=== PATIENT | female | born 1950 | race Caucasian/White ===

== ENCOUNTER → 2018-12-02 15:21 | Outpatient (CLI) | payer MEDICARE, SELFPAY ==
--- NOTE | 2018-12-02 | DI.MG.S_ITS ---
BILATERAL DIGITAL SCREENING MAMMOGRAM 3D/2D WITH CAD: 12/02/2018 CLINICAL: Routine screening. Comparison is made to exams dated: 02/11/2017 mammogram, 01/17/2015 mammogram, and 10/31/2013 mammogram - [facility]. There are scattered fibroglandular elements in both breasts. Current study was also evaluated with a Computer Aided Detection (CAD) system. No significant masses, calcifications, or other findings are seen in either breast. There has been no significant interval change. IMPRESSION: NEGATIVE There is no mammographic evidence of malignancy. A 1 year screening mammogram is recommended. This exam was interpreted at Station ID: [id number]. NOTE: For mammograms, a report in lay terms will be sent to the patient. Approximately 15% of breast malignancies will not be visualized mammographically. In the management of a palpable breast mass, a negative mammogram must not discourage biopsy of a clinically suspicious lesion. Electronically Signed By: Lubna marroquin/joshua:12/03/2018 01:00:53 letter sent: Normal Exam ACR BI-RADS Category 1: Negative 3341F
== END ==
PROVIDERS: Family Provider Physician Assistant; PCP Physician Assistant; Visit Provider Physician Assistant
DX: Z12.31 Encounter for screening mammogram for malignant neoplasm of breast (principal)
CPT/HCPCS: 77063; 77067

== ENCOUNTER → 2019-04-11 11:42 | Outpatient (CLI) | payer MEDICARE, SELFPAY ==
--- NOTE | 2019-04-11 | DI.CT.S_ITS ---
PROCEDURE: CT KIDNEY URETER BLADDER (KUB) INDICATIONS: Dysuria TECHNIQUE: Noncontrast 5 mm thick sections acquired from the diaphragms to the symphysis. 5 mm thick coronal and sagittal reformats were then performed. For radiation dose reduction, the following was used: automated exposure control, adjustment of mA and/or kV according to patient size. COMPARISON: [facility], CT, KIDNEY/ URETER/BLADDER, 12/13/2009, 8:29. FINDINGS: Image quality: Excellent. Lung bases: Lung bases are clear. Heart size is normal. Urinary system: Both kidneys are normal in size. No kidney stones. No hydronephrosis or perinephric fat stranding. Both ureters appear non-dilated throughout their expected courses. Bladder wall thickness is normal; no calcified bladder stones. Other solid organs: Liver is normal in size. Gallbladder appears normal. Pancreas is normal in contours. Spleen is normal in size. No adrenal nodules. Peritoneum and bowel: Unenhanced bowel loops demonstrate normal wall thickness and caliber. No free fluid or air. Nodes and vessels: No retroperitoneal or mesenteric adenopathy by size criteria. Aorta and inferior vena cava are normal in caliber. Abdominal wall: No ventral hernias. Pelvis: No free pelvic fluid. No inguinal hernias or adenopathy. Bones: No suspicious bony lesions. No vertebral body compression fractures. IMPRESSION: No hydronephrosis or nephrolithiasis is found. No ureteral calculus is identified. A source of persistent dysuria is not seen. Dictated by: Dejan Rainey M.D. on 04/11/2019 at 17:00 Approved by: Dejan Rainey M.D. on 04/11/2019 at 17:01
== END ==
PROVIDERS: PCP Student in an Organized Health Care Education/Training Program; Visit Provider Student in an Organized Health Care Education/Training Program
DX: R30.0 Dysuria (principal)
CPT/HCPCS: 74176

== ENCOUNTER → 2019-04-22 19:35 | Outpatient (CLI) | payer MEDICARE, SELFPAY | PROVIDERS: PCP Student in an Organized Health Care Education/Training Program; Visit Provider Physician Assistant | DX: N39.0 Urinary tract infection, site not specified (principal); R31.9 Hematuria, unspecified | CPT/HCPCS: 87086 ==

== ENCOUNTER → 2019-06-17 09:23 | Outpatient (CLI) | payer MEDICARE, SELFPAY ==
[2019-06-17 09:54] LABS: Add Manual Diff / Slide Review NO; Basophils Absolute Auto 100 /uL (0-100); Basophils Percent Auto 1.3 % (0-2); Eosinophils Absolute Auto 100 /uL (0-450); Eosinophils Percent Auto 1.7 % (2-4); Hematocrit 39.1 % (36-46); Hemoglobin 13.4 g/dL (12.0-16.0); Lymphocytes Absolute Auto 1400 /uL (1100-4500); Lymphocytes Percent Auto 33.8 % (25-40); Mean Corpuscular HGB Conc 34.3 % (30-36); Mean Corpuscular Hemoglobin 33.2 PG (26-34); Mean Corpuscular Volume 96.7 fL (80-100); Monocytes Absolute Auto 300 /uL (0-900); Monocytes Percent Auto 7.8 % (3-14); Neutrophils Absolute Auto 2200 /uL (1500-7000); Neutrophils Percent Auto 55.4 % (50-75); Platelet Count 275 X10^3/uL (150-400); Red Blood Cell Count 4.04 X10^6/uL (4.0-5.2); Red Cell Distribution Width 13.2 % (11.6-14.8)
[2019-06-17 10:03] LABS: Appearance Urine UA SL CLOUDY; Bilirubin Urine UA NEGATIVE (NEGATIVE); Color Urine UA YELLOW; Glucose Urine UA NEGATIVE (Negative); Ketones Urine UA NEGATIVE (NEGATIVE); Leukocyte Esterase Urine UA 1+ (NEGATIVE); Nitrite Urine UA NEGATIVE (Negative); Occult Blood Urine UA 2+ (Negative); Protein Urine UA NEGATIVE (Negative); Urobilinogen Urine UA 0.2 E.U./dL (0.2)
[2019-06-17 10:20] LABS: RBC Urine 5-10/HPF (0-5/HPF); Renal Epithelial Cells Urine 0-1/HPF (0-1/HPF); Squamous Epithelial Cell Urine 10-30 /HPF (0-5/HPF); Transitional Epi Cells Urine 1-5/HPF (0-5/HPF); WBC Urine 1-5/HPF (0-5/HPF); pH Urine UA 7.5 (4.5-8.0)
[2019-06-17 10:21] LABS: Bacteria Urine Few (2-10); Culture Indicated Urine Cult Not Indicated
[2019-06-17 10:22] LABS: Alanine Aminotransferase 18 IU/L (9-52); Albumin 4.4 g/dL (3.5-5.0); Albumin Globulin Ratio 1.8 (1.0-2.8); Alkaline Phosphatase 61 U/L (38-126); Aspartate Aminotransferase 21 IU/L (14-36); BUN Creatinine Ratio 21.7 (6-22); Bilirubin Total 0.3 mg/dL (0.2-1.3); Blood Urea Nitrogen 13 mg/dL (7-17); Calcium 9.5 mg/dL (8.4-10.2); Carbon Dioxide 31 mmol/L (22-32); Chloride 98 mmol/L (98-107); Cholesterol 226 mg/dL (140-199); Estimated Glomerular Filt Rate > 60.0 mL/min (>60); Globulin 2.5 g/dL (1.7-4.1); Glucose 93 mg/dL (80-110); HDL Cholesterol 80 mg/dL (40-60); HEMOLYSIS < 15 (0-50); LDL Cholesterol Calculated 125 mg/dL (<100); Potassium 4.3 mmol/L (3.4-5.1); Sodium 135 mmol/L (137-145); Total Protein 6.9 g/dL (6.3-8.2); Triglycerides 106 mg/dL (35-150)
== END ==
PROVIDERS: PCP Student in an Organized Health Care Education/Training Program; Visit Provider Physician Assistant
DX: E78.2 Mixed hyperlipidemia (principal); R35.0 Frequency of micturition
CPT/HCPCS: 36415; 80053; 80061; 81001; 85025

== ENCOUNTER → 2020-04-25 11:59 | Outpatient (CLI) | payer MEDICARE, SELFPAY ==
--- NOTE | 2020-04-25 | DI.MG.S_ITS ---
BILATERAL DIGITAL SCREENING MAMMOGRAM 3D/2D WITH CAD: 04/25/2020 CLINICAL: Routine screening. Comparison is made to exams dated: 12/02/2018 mammogram, 08/20/2017 mammogram, 02/17/2017 mammogram, 02/11/2017 mammogram, and 01/17/2015 mammogram - [facility]. There are scattered fibroglandular elements in both breasts. Current study was also evaluated with a Computer Aided Detection (CAD) system. No significant masses, calcifications, or other findings are seen in either breast. There has been no significant interval change. IMPRESSION: NEGATIVE There is no mammographic evidence of malignancy. A 1 year screening mammogram is recommended. This exam was interpreted at Station ID: [id number]. NOTE: For mammograms, a report in lay terms will be sent to the patient. Approximately 15% of breast malignancies will not be visualized mammographically. In the management of a palpable breast mass, a negative mammogram must not discourage biopsy of a clinically suspicious lesion. Electronically Signed By: Lubna marroquin/joshua:04/25/2020 17:38:10 letter sent: Normal Exam ACR BI-RADS Category 1: Negative 3341F
== END ==
PROVIDERS: PCP Student in an Organized Health Care Education/Training Program; Referring Provider Student in an Organized Health Care Education/Training Program; Visit Provider Student in an Organized Health Care Education/Training Program
DX: Z12.31 Encounter for screening mammogram for malignant neoplasm of breast (principal)
CPT/HCPCS: 77063; 77067

== ENCOUNTER → 2020-06-15 13:20 | Outpatient (CLI) | payer MEDICARE, SELFPAY ==
--- NOTE | 2020-06-15 | DI.RAD.S_ITS ---
PROCEDURE: XR DEXA AXIAL SKELETON INDICATIONS: Other specified menopausal and perimenopausal diso COMPARISON: None. FINDINGS: This blank DEXA report has been sent in error by the PACS system. The correct and complete report will be forthcoming in 1-2 days. Thank you for your patience and understanding. Dictated by: Aura Matthews MD, PhD on 06/15/2020 at 15:13 Approved by: Aura Matthews MD, PhD on 06/15/2020 at 15:14
== END ==
PROVIDERS: PCP Student in an Organized Health Care Education/Training Program; Referring Provider Student in an Organized Health Care Education/Training Program; Visit Provider Student in an Organized Health Care Education/Training Program
DX: Z78.0 Asymptomatic menopausal state (principal); Z87.891 Personal history of nicotine dependence
CPT/HCPCS: 77080

== ENCOUNTER → 2020-11-02 17:32 | Outpatient (CLI) | payer MEDICARE, SELFPAY ==
[2020-11-02] MEDS: COVID-19 VACC #1, MRNA(MOD) 100 MCG/0.5 ML VIAL IM (17:42)
== END ==
PROVIDERS: PCP Student in an Organized Health Care Education/Training Program; Visit Provider Internal Medicine
DX: Z23 Encounter for immunization (principal)
CPT/HCPCS: 0011A; 91301

== ENCOUNTER → 2020-11-30 13:42 | Outpatient (CLI) | payer MEDICARE, SELFPAY ==
[2020-11-30] MEDS: COVID-19 VACC #2, MRNA(MOD) 100 MCG/0.5 ML VIAL IM (13:52)
== END ==
PROVIDERS: PCP Student in an Organized Health Care Education/Training Program; Visit Provider Internal Medicine
DX: Z23 Encounter for immunization (principal)
CPT/HCPCS: 0012A; 91301

== ENCOUNTER → 2021-04-26 10:16 | Outpatient (CLI) | payer MEDICARE, SELFPAY ==
--- NOTE | 2021-04-26 10:18 | DI.MG.S_ITS ---
BILATERAL DIGITAL SCREENING MAMMOGRAM 3D/2D WITH CAD: 04/26/2021 CLINICAL: Routine screening. Comparison is made to exams dated: 04/25/2020 mammogram, 12/02/2018 mammogram, and 02/11/2017 mammogram - [facility]. There are scattered fibroglandular elements in both breasts. Current study was also evaluated with a Computer Aided Detection (CAD) system. No significant masses, calcifications, or other findings are seen in either breast. There has been no significant interval change. IMPRESSION: NEGATIVE There is no mammographic evidence of malignancy. A 1 year screening mammogram is recommended. This exam was interpreted at Station ID: [id number]. NOTE: For mammograms, a report in lay terms will be sent to the patient. Approximately 15% of breast malignancies will not be visualized mammographically. In the management of a palpable breast mass, a negative mammogram must not discourage biopsy of a clinically suspicious lesion. Electronically Signed By: Steven Colon M.D. at/joshua:04/26/2021 11:53:31 letter sent: Normal Exam ACR BI-RADS Category 1: Negative 3341F
== END ==
PROVIDERS: PCP Student in an Organized Health Care Education/Training Program; Referring Provider Student in an Organized Health Care Education/Training Program; Visit Provider Student in an Organized Health Care Education/Training Program
DX: Z12.31 Encounter for screening mammogram for malignant neoplasm of breast (principal)
CPT/HCPCS: 77063; 77067

== ENCOUNTER 2022-03-29 18:39 | Emergency (ER) | payer MEDICARE, SELFPAY ==
[2022-03-29] VITALS (11 sets, daily range): BP systolic 187–232; BP diastolic 81–106; PULSE 62–89; RESP 17–22; TEMP 36; O2SAT 89–99; BMI 25.7
[2022-03-29 22:44] LABS: Alanine Aminotransferase 21 IU/L (<35); Albumin 4.8 g/dL (3.5-5.0); Albumin Globulin Ratio 1.8 (1.0-2.8); Alkaline Phosphatase 55 U/L (38-126); Aspartate Aminotransferase 31 IU/L (14-36); BUN Creatinine Ratio 18.2 (6-22); Bilirubin Total 0.4 mg/dL (0.2-1.3); Blood Urea Nitrogen 14 mg/dL (7-17); Calcium 9.1 mg/dL (8.4-10.2); Carbon Dioxide 28 mmol/L (22-32); Chloride 98 mmol/L (98-107); Creatine Kinase 94 U/L (30-135); Estimated Glomerular Filt Rate > 60 mL/min (>60); Globulin 2.7 g/dL (1.7-4.1); Glucose 94 mg/dL (80-110); HEMOLYSIS < 15 (0-50); Lipase 105 U/L (23-300); Sodium 134 mmol/L (137-145); Total Protein 7.5 g/dL (6.3-8.2)
[2022-03-29 22:45] LABS: Add Manual Diff / Slide Review NO; Basophils Absolute Auto 200 /uL (0-100); Basophils Percent Auto 3.4 % (0-2); Eosinophils Absolute Auto 100 /uL (0-450); Eosinophils Percent Auto 1.4 % (2-4); Hematocrit 38.5 % (36-46); Hemoglobin 13.4 g/dL (12.0-16.0); Lymphocytes Absolute Auto 1700 /uL (1100-4500); Lymphocytes Percent Auto 31.5 % (25-40); Mean Corpuscular HGB Conc 34.7 % (30-36); Mean Corpuscular Hemoglobin 33.3 PG (26-34); Mean Corpuscular Volume 95.9 fL (80-100); Monocytes Absolute Auto 300 /uL (0-900); Monocytes Percent Auto 5.1 % (3-14); Neutrophils Absolute Auto 3100 /uL (1500-7000); Neutrophils Percent Auto 58.6 % (50-75); Platelet Count 268 X10^3/uL (150-400); Red Blood Cell Count 4.01 X10^6/uL (4.0-5.2); Red Cell Distribution Width 13.3 % (11.6-14.8); White Blood Cell Count 5.3 X10^3/uL (4.5-11.0)
[2022-03-29 22:55] LABS: Troponin I < 0.012 ng/mL (0.01-0.034)
--- NOTE | 2022-03-29 23:45 | ED.GENADULT ---
HPI - General Adult General Chief complaint: Hypertension Stated complaint: Needs BP checked stated 190/117 Time Seen by Provider: 03/29/22 23:25 Source: patient Mode of arrival: Family Vehicle History of Present Illness HPI narrative: Patient is a pierce healthy 71-year-old female who presents with high blood pressure. She is at on Thursday she had preop check. She is supposed to have eyelid surgery in 3 days. She never previously had elevated blood pressure but on that day was 166/76. Today she decided to check her blood pressure it was elevated to 200. She has no chest pain no headache no blurry vision no shortness of breath she has no other symptoms. She was quite worried because her blood pressure is so high. Hieu does have light stress home but has been has Alzheimer's and he has many responsibilities. She actually went to a primary care provider who noted that she had a grade 2 murmur which she had never had before. She denies having any symptoms of this. Patient states that for a while she has had increasing shortness of breath while walking up hill. She does have a history of asthma she says this seems to be little bit worse. Related Data Home Medications Medication Instructions Recorded Confirmed citalopram [Celexa] PO 04/22/19 06/18/20 nortriptyline PO 04/22/19 06/18/20 Previous Rx's Medication Instructions Recorded nitrofurantoin 100 mg PO BID #14 caps 04/22/19 monohydrate/macrocrystals 100 mg capsule (Macrobid) Allergies Allergy/AdvReac Type Severity Reaction Status Date / Time codeine [CODEINE] Allergy Unknown Verified 06/18/20 15:27 Review of Systems Review of Systems Narrative: GENERAL: Denies chills, fatigue, malaise, fever, sweats, travel HEENT: Denies sinus pain, ear pain, sore throat, difficulty swallowing, neck pain RESPIRATORY: Denies dyspnea, cough, wheezing, hemoptysis, sputum. CARDIOVASCULAR: Denies chest pain, palpitations, orthopnea, edema GASTROINTESTINAL: Denies nausea, vomiting, abdominal pain, diarrhea, constipation, melena. : Denies dysuria, frequency, incontinence, hematuria, urinary retention, flank pain. MUSCULOSKELETAL: Denies weakness, joint pain, or bony pain SKIN: No rash, no erythema, no pruritus NEUROLOGIC: Denies weakness, dizziness, headache, numbness, change in speech, confusion PSYCHIATRIC: No concerning psychosocial issues. 12 point review of systems is negative except for those stated above and HPI Patient History Medical History (Updated 03/30/22 @ 00:26 by Rosa Darnell DO) No significant medical problems Social History Smoking Status: Former smoker Smoking Status: Former smoker alcohol intake frequency: 0-2 drinks per day Substance Use Type: does not use Exam Initial Vital Signs Initial Vital Signs: Vital Signs Temperature 96.8 F L 03/29/22 18:49 Pulse Rate 89 03/29/22 18:49 Respiratory Rate 22 03/29/22 18:49 Blood Pressure 216/106 H 03/29/22 18:49 Pulse Oximetry 99 03/29/22 18:49 Oxygen Delivery Method 03/29/22 18:49 GENERAL: [Well-appearing, well-nourished] and in [no acute] distress. HEENT: Head atraumatic,EOMI, pupils reactive, face symmetric, [moist] mucous membranes CARDIOVASCULAR: Regular rate and rhythm without murmurs, rubs or gallops. RESPIRATORY: Breath sounds equal bilaterally, no wheezes rales or rhonchi. ABDOMEN: Soft, nontender. Normoactive bowel sounds all 4 quadrants. No guarding or rebound. EXTREMITIES: Normal range of motion, no clubbing or edema. Neurovascularly intact NEUROLOGICAL: Alert and oriented x4.Normal gait and speech. SKIN: Warm, dry, no laceration, no petechiae, no rashes or lesions. Course Orders Ordered: ED Orders 03/29/22 21:58 EKG-12 Lead Stat 03/29/22 22:18 Complete Blood Count AUTO DIFF Stat Comprehensive Metabolic Panel Stat Lipase Stat Magnesium Stat Troponin & CK Cardiac Panel Stat Vital Signs Vital signs: Vital Signs - 8 hr 03/29/22 21:45 03/29/22 21:56 03/29/22 21:56 Pulse Rate 67 74 Respiratory Rate 20 Blood Pressure 232/98 H Pulse Oximetry 89 L 03/29/22 22:00 03/29/22 22:01 03/29/22 22:01 Pulse Rate 70 70 Respiratory Rate 22 17 Blood Pressure 198/93 H Pulse Oximetry 03/29/22 22:30 03/29/22 22:31 03/29/22 22:31 Pulse Rate 64 64 Respiratory Rate 21 20 Blood Pressure 192/94 H Pulse Oximetry 03/29/22 23:00 03/29/22 23:01 03/29/22 23:01 Pulse Rate 62 62 Respiratory Rate 18 22 Blood Pressure 199/81 H Pulse Oximetry 03/29/22 23:30 03/29/22 23:31 03/29/22 23:31 Pulse Rate 66 66 Respiratory Rate 21 18 Blood Pressure 187/84 H Pulse Oximetry 03/30/22 00:00 03/30/22 00:22 03/30/22 00:22 Pulse Rate 70 68 Respiratory Rate 22 22 Blood Pressure 168/79 H Pulse Oximetry 03/30/22 00:30 Pulse Rate 74 Respiratory Rate 24 Blood Pressure Pulse Oximetry 96 Medical Decision Making Lab Data Result diagrams: 03/29/22 22:18 03/29/22 22:18 Labs: Lab Results 03/29/22 03/29/22 Range/Units 22:18 22:18 WBC 5.3 (4.5-11.0) X10^3/uL RBC 4.01 (4.0-5.2) X10^6/uL Hgb 13.4 (12.0-16.0) g/dL Hct 38.5 (36-46) % MCV 95.9 (80-100) fL MCH 33.3 (26-34) PG MCHC 34.7 (30-36) % RDW 13.3 (11.6-14.8) % Plt Count 268 (150-400) X10^3/uL Neut % (Auto) 58.6 (50-75) % Lymph % (Auto) 31.5 (25-40) % [place] % (Auto) 5.1 (3-14) % Eos % (Auto) 1.4 L (2-4) % Baso % (Auto) 3.4 H (0-2) % Neut # (Auto) 3100 (6285-4811) /uL Lymph # (Auto) 1700 (0713-7092) /uL Independence # (Auto) 300 (0-900) /uL Eos # (Auto) 100 (0-450) /uL Baso # (Auto) 200 H (0-100) /uL Sodium 134 L (137-145) mmol/L Potassium 4.0 (3.4-5.1) mmol/L Chloride 98 (98-107) mmol/L Carbon Dioxide 28 (22-32) mmol/L BUN 14 (7-17) mg/dL Creatinine 0.77 (0.52-1.04) mg/dL Estimated GFR > 60 (>60) mL/min BUN/Creatinine Ratio 18.2 (6-22) Glucose 94 (80-110) mg/dL Calcium 9.1 (8.4-10.2) mg/dL Magnesium 2.0 (1.6-2.3) mg/dL Total Bilirubin 0.4 (0.2-1.3) mg/dL AST 31 (14-36) IU/L ALT 21 (<35) IU/L Alkaline Phosphatase 55 (38-126) U/L Total Creatine Kinase 94 (30-135) U/L CK-MB (CK-2) TNP CK-MB (CK-2) Rel Index TNP Troponin I < 0.012 (0.01-0.034) ng/mL Total Protein 7.5 (6.3-8.2) g/dL Albumin 4.8 (3.5-5.0) g/dL Globulin 2.7 (1.7-4.1) g/dL Albumin/Globulin Ratio 1.8 (1.0-2.8) Lipase 105 (23-300) U/L ECG Data Interpretation: Normal sinus rhythm rate 73 NH interval 188 QRS [address] changes no T-wave inversions up bundle branch block noted no priors to compare MDM Narrative Medical decision making narrative: Patient's blood pressure does come down somewhat she has no sign of end-organ damage she is completely asymptomatic. At this time I recommend she monitor blood pressure I also recommend outpatient echo and possible stress test. Patient's blood pressure varies here in the ED however it is still quite elevated. His she has a primary care provider in can easily follow up. We also discussed that if she starts being symptomatic at any point in time or from blood pressure is persistently elevated then she needs to return to ED. I discussed all findings with the patient and spouse, Education has been performed regarding treatment plan, diagnosis, warning signs and symptoms and all concerns have been addressed. Verbally agree with and understood all of the above. Discharge Plan Departure Patient Disposition: Home Clinical Impression: Hypertension Instructions: DI for High Blood Pressure Activity Restrictions/Additional Instructions: *You have been diagnosed with high blood pressure *What to do: Please monitor your blood pressure daily check it 1 or 2 times a day morning and night and recorded for your primary care provider. I also do recommended echocardiogram and a stress test which can be arranged with her primary care provider. *Continue to take medications as directed *Follow up with your primary care provider in 2-3 days or call [phone] *Return to ER if you should have blood pressure greater than 190/100, chest pain, shortness of breath, headache blurry vision, weakness numbness tingling or any new, worsening or concerning symptoms Prescriptions: No Action citalopram PO nortriptyline PO nitrofurantoin monohyd/m-cryst [Macrobid] 100 mg capsule 100 mg PO BID Qty: 14 0RF Rx Instructions: must administer with a meal/food Referrals: Kelsie Francois PA-C [Primary Care Provider] - Visit Report Forms: Patient Portal/API
[2022-03-30] VITALS: PULSE 70; RESP 22
[2022-03-30 00:22] VITALS: BP 168/79; PULSE 68; RESP 22
[2022-03-30 00:30] VITALS: PULSE 74; RESP 24; O2SAT 96
== END 2022-03-30 00:49 | disposition home or self-care (01) ==
PROVIDERS: Emergency Provider Emergency Medicine; PCP Student in an Organized Health Care Education/Training Program
DX: I10 Essential (primary) hypertension (principal); R06.02 Shortness of breath; R07.9 Chest pain, unspecified
CPT/HCPCS: 36415; 80053; 82550; 83690; 83735; 84484; 85025; 93005; 93010; 99281; 99284

== ENCOUNTER → 2022-04-25 13:03 | Outpatient (CLI) | payer MEDICARE, SELFPAY ==
[2022-04-25 13:33] LABS: Add Manual Diff / Slide Review NO; Basophils Absolute Auto 100 /uL (0-100); Basophils Percent Auto 1.8 % (0-2); Eosinophils Absolute Auto 100 /uL (0-450); Eosinophils Percent Auto 1.6 % (2-4); Hematocrit 37.4 % (36-46); Hemoglobin 12.9 g/dL (12.0-16.0); Lymphocytes Absolute Auto 1400 /uL (1100-4500); Lymphocytes Percent Auto 33.2 % (25-40); Mean Corpuscular HGB Conc 34.6 % (30-36); Mean Corpuscular Hemoglobin 32.8 PG (26-34); Mean Corpuscular Volume 94.9 fL (80-100); Monocytes Absolute Auto 400 /uL (0-900); Monocytes Percent Auto 9.3 % (3-14); Neutrophils Absolute Auto 2200 /uL (1500-7000); Neutrophils Percent Auto 54.1 % (50-75); Platelet Count 268 X10^3/uL (150-400); Red Blood Cell Count 3.94 X10^6/uL (4.0-5.2); Red Cell Distribution Width 12.9 % (11.6-14.8); White Blood Cell Count 4.1 X10^3/uL (4.5-11.0)
[2022-04-25 13:49] LABS: Alanine Aminotransferase 15 IU/L (<35); Albumin 4.6 g/dL (3.5-5.0); Albumin Globulin Ratio 1.8 (1.0-2.8); Alkaline Phosphatase 49 U/L (38-126); Aspartate Aminotransferase 23 IU/L (14-36); BUN Creatinine Ratio 23.2 (6-22); Bilirubin Total 0.4 mg/dL (0.2-1.3); Blood Urea Nitrogen 16 mg/dL (7-17); Calcium 9.1 mg/dL (8.4-10.2); Carbon Dioxide 27 mmol/L (22-32); Chloride 101 mmol/L (98-107); Cholesterol 221 mg/dL (140-199); Estimated Glomerular Filt Rate > 60 mL/min (>60); Globulin 2.5 g/dL (1.7-4.1); Glucose 94 mg/dL (80-110); HDL Cholesterol 73 mg/dL (40-60); HEMOLYSIS < 15 (0-50); LDL Cholesterol Calculated 130 mg/dL (<100); Potassium 4.6 mmol/L (3.4-5.1); Sodium 136 mmol/L (137-145); Total Protein 7.1 g/dL (6.3-8.2); Triglycerides 92 mg/dL (35-150)
[2022-04-25 15:03] LABS: Vitamin D 25 Hydroxy (D3) 87.8 ng/mL (30.0-100.0)
[2022-04-25 15:31] LABS: Hep C Virus Ab w/Reflex Quant NEGATIVE s/c (NEGATIVE)
== END ==
PROVIDERS: PCP Student in an Organized Health Care Education/Training Program; Referring Provider Physician Assistant; Visit Provider Physician Assistant
DX: R06.00 Dyspnea, unspecified (principal); E78.2 Mixed hyperlipidemia; E55.9 Vitamin D deficiency, unspecified; I44.7 Left bundle-branch block, unspecified; I10 Essential (primary) hypertension; Z11.59 Encounter for screening for other viral diseases
CPT/HCPCS: 36415; 80053; 80061; 82306; 85025; 86803

== ENCOUNTER → 2022-05-05 13:24 | Outpatient (CLI) | payer MEDICARE, SELFPAY ==
--- NOTE | 2022-05-05 | DI.MG.S_ITS ---
BILATERAL DIGITAL SCREENING MAMMOGRAM 3D/2D WITH CAD: 05/05/2022 CLINICAL: Routine screening. Comparison is made to exams dated: 04/26/2021 mammogram, 04/25/2020 mammogram, 12/02/2018 mammogram, 08/20/2017 mammogram, and 02/11/2017 mammogram - . There are scattered fibroglandular elements in both breasts. Current study was also evaluated with a Computer Aided Detection (CAD) system. There are benign calcifications in both breasts. No significant masses, calcifications, or other findings are seen in either breast. There has been no significant interval change. IMPRESSION: BENIGN There is no mammographic evidence of malignancy. A 1 year screening mammogram is recommended. Based on the Tyrer Cuzick model (a risk assessment model) the patient's lifetime risk is 3.7% and her 10 year risk is 2.3%. According to the ACR, ACS, and NCCN guidelines, an annual breast MRI exam along with mammogram is recommended if the patient's lifetime risk is 20% or greater. This exam was interpreted at Station ID: [id number]. NOTE: For mammograms, a report in lay terms will be sent to the patient. Approximately 15% of breast malignancies will not be visualized mammographically. In the management of a palpable breast mass, a negative mammogram must not discourage biopsy of a clinically suspicious lesion. Electronically Signed By: Hunter rivas/joshua:05/05/2022 14:13:16 letter sent: Normal Exam ACR BI-RADS Category 2: Benign Finding(s) 3342F
== END ==
PROVIDERS: PCP Student in an Organized Health Care Education/Training Program; Referring Provider Student in an Organized Health Care Education/Training Program; Visit Provider Student in an Organized Health Care Education/Training Program
DX: Z12.31 Encounter for screening mammogram for malignant neoplasm of breast (principal)
CPT/HCPCS: 77063; 77067

== ENCOUNTER → 2022-05-21 10:26 | Outpatient (CLI) | payer MEDICARE, SELFPAY ==
[2022-05-21 11:37] LABS: COVID19 -Nasal RAPID Negative (Negative)
--- NOTE | 2022-05-21 18:42 | DI.NM.S_ITS ---
DATE OF SERVICE: 05/21/2022 PROCEDURE: Stress perfusion study only. INDICATION: Dyspnea, underlying hypertension, left bundle branch block. RADIOPHARMACEUTICAL: 25.2 millicurie technetium-99m Myoview IV was injected at stress. Please note this is a stress perfusion study only. STRESS TEST: The patient underwent IV Lexiscan perfusion study under the supervision of an attending staff using standard intravenous Lexiscan protocol. She remained hemodynamically stable. Baseline blood pressure 130/88 and heart rate 63. Baseline rhythm sinus with left bundle branch block. During stress, there were no new convincing ischemic changes seen. Occasional PACs. No significant sustained arrhythmias. The patient had minimal dyspnea. No chest discomfort. RAW DATA: Breast shadow was seen. GATED STUDY: Stress LV ejection fraction 70 percent. No wall motion abnormalities. Stress end-diastolic volume 124 mL. Lung/heart ratio 0.19, which is within normal limits. MYOCARDIAL PERFUSION SCAN: Stress supine and stress prone images were compared to each other. Stress supine images revealed a small to moderate-sized moderately decreased perfusion of distal anterior wall extending into the distal anteroseptum, as well as some mild base to mid anterior septal wall defect. During stress prone images, there was significant improvement of distal anterior wall, anteroseptal defect. The patient has mildly decreased perfusion of base to mid anteroseptum. The anterior wall has significantly improved. CONCLUSION: I will call this study likely a normal myocardial perfusion study with evidence of perfusion defect during stress supine, likely due to breast tissue attenuation, as well as underlying left bundle branch block, which got significantly improved during stress prone images. During stress prone images, no convincing ischemia or infarction. Left ventricular ejection fraction 70 percent during stress without any obvious wall motion abnormalities. Hence, overall this is a low-risk myocardial perfusion scan. Correlate clinically. Carmel Kern - JOHN/diana/will doc#: [id number]/job#: [id number] dd: 05/21/2022 16:54:00 dt: 05/21/2022 18:12:00 DICTATING MD/COPIES TO: Carina Shabazz MD COPIES MNE: DANIAL;
== END ==
PROVIDERS: PCP Student in an Organized Health Care Education/Training Program; Referring Provider Student in an Organized Health Care Education/Training Program; Visit Provider Physician Assistant
DX: R06.00 Dyspnea, unspecified (principal); I44.7 Left bundle-branch block, unspecified; I10 Essential (primary) hypertension; Z20.822 Contact with and (suspected) exposure to COVID-19
CPT/HCPCS: 78451; 87635; 93017; A9502; J2785

== ENCOUNTER → 2022-07-09 15:56 | Outpatient (CLI) | payer MEDICARE, SELFPAY ==
--- NOTE | 2022-07-09 15:57 | DI.RAD.S_ITS ---
PROCEDURE: XR CHEST 2V INDICATIONS: Fever, SOB TECHNIQUE: 2 views of the chest were acquired. COMPARISON: None. FINDINGS: Surgical changes and devices: None. Lungs and pleura: Lungs are clear. No pleural effusions or pneumothorax. Mediastinum: Mediastinal contours are normal. Heart size is normal. Bones and chest wall: No suspicious bony abnormalities. Soft tissues appear unremarkable. IMPRESSION: No acute cardiopulmonary process demonstrated radiographically. Dictated by: Ney Russell M.D. on 07/09/2022 at 16:25 Approved by: Ney Russell M.D. on 07/09/2022 at 16:25
== END ==
PROVIDERS: PCP Student in an Organized Health Care Education/Training Program; Referring Provider Nurse Practitioner Family; Visit Provider Nurse Practitioner Family
DX: R06.02 Shortness of breath (principal); R50.9 Fever, unspecified
CPT/HCPCS: 71046

== ENCOUNTER 2022-09-23 23:50 | Emergency (ER) | payer MEDICARE, SELFPAY ==
--- NOTE | 2022-09-24 00:18 | PC.NURSE ---
She was here after googling her symptoms and it was advised by google to come to an ED she said,she has history of high blood pressure and has an appointment with her PCP this .after noting her b/p here being 170/88 she Igor feel much better now,I think I will go home and see my DR this week.
== END 2022-09-24 00:05 | disposition left against medical advice (07) ==
PROVIDERS: Emergency Provider Emergency Medicine; PCP Student in an Organized Health Care Education/Training Program
DX: R03.0 Elevated blood-pressure reading, without diagnosis of hypertension (principal)

== ENCOUNTER → 2023-05-05 13:22 | Outpatient (CLI) | payer MEDICARE, SELFPAY ==
--- NOTE | 2023-05-05 | DI.MG.S_ITS ---
BILATERAL DIGITAL SCREENING MAMMOGRAM 3D/2D WITH CAD: 05/05/2023 CLINICAL: Routine screening. Comparison is made to exams dated: 05/05/2022 mammogram, 04/26/2021 mammogram, 04/25/2020 mammogram, and 12/02/2018 mammogram - [facility]. There are scattered areas of fibroglandular density in both breasts (category b / 25%-50% glandular tissue). Current study was also evaluated with a Computer Aided Detection (CAD) system. There are benign calcifications in both breasts. No significant masses, calcifications, or other findings are seen in either breast. There has been no significant interval change. IMPRESSION: BENIGN There is no mammographic evidence of malignancy. A 1 year screening mammogram is recommended. Based on the Tyrer Cuzick model (a risk assessment model) the patient's lifetime risk is 3.5% and her 10 year risk is 2.4%. According to the ACR, ACS, and NCCN guidelines, an annual breast MRI exam along with mammogram is recommended if the patient's lifetime risk is 20% or greater. This exam was interpreted at Station ID: [id number]. NOTE: For mammograms, a report in lay terms will be sent to the patient. Approximately 15% of breast malignancies will not be visualized mammographically. In the management of a palpable breast mass, a negative mammogram must not discourage biopsy of a clinically suspicious lesion. Electronically Signed By: Hunter rivas/joshua:05/05/2023 17:13:54 letter sent: Normal Exam ACR BI-RADS Category 2: Benign Finding(s) 3342F
== END ==
PROVIDERS: PCP Student in an Organized Health Care Education/Training Program; Referring Provider Student in an Organized Health Care Education/Training Program; Visit Provider Student in an Organized Health Care Education/Training Program
DX: Z12.31 Encounter for screening mammogram for malignant neoplasm of breast (principal)
CPT/HCPCS: 77063; 77067

== ENCOUNTER 2023-05-14 13:15 | Day surgery (SDC) | payer MEDICARE, SELFPAY ==
--- NOTE | 2023-05-14 | PATH_ITS ---
[facility] Accession Number: [id number] No. of containers..01 Tissue . 01 Material submitted: . colon - CECAL POLYPS . 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 [facility] 05/22/2023 1033 Local . 01 Electronically signed: . Anil Hanks MD, PhD, Pathologist NPI- [id number] . 01 Gross description: . CECAL POLYPS: Received in formalin are multiple fragment(s) of ramsay, soft tissue measuring 0.1 x 0.1 x 0.1 cm to 0.6 x 0.6 x 0.1 cm submitted entirely in 1 cassette(s) /RODRIGO 05/19/2023 1859 Local . 01 Pathologist provided ICD-10: D12.0, K52.89 . 01 CPT . 731806 Specimen Comment: A courtesy copy of this report has been sent to [phone] Performed at: 01 [facility] [address] [place] [address] [facility] [place], [place], [place] [id number] MD Nagi Fraga MD Phone: [phone]
[2023-05-14 13:37] VITALS: BP 133/88; PULSE 83; RESP 16; TEMP 36.2; O2SAT 98; BMI 25.8
[2023-05-14] MEDS: LACTATED RINGERS 1,000 ML 84 ML IV (13:54)
--- NOTE | 2023-05-14 14:36 | P.HP_ITS ---
History of Present Illness History of Present Illness Date Patient Seen: 05/14/23 Time Patient Seen: 14:36 Chief complaint: Colonoscopy Narrative: Juhi is a 72-year-old woman who is here for colonoscopy. Her father had colon cancer in his 80s and survived. She wants to remain proactive about colon cancer screening as long as possible. [facility] Medical History (Updated 05/14/23 @ 14:37 by Dick Gonzalez MD) No significant medical problems Social History household members: spouse Smoking Status: Former smoker Meds Home Medications and Allergies Home Medications Medication Instructions Recorded Confirmed Type citalopram [Celexa] 25 mg PO QDRHS anx 04/22/19 05/14/23 History nitrofurantoin 100 mg PO BID #14 caps 04/22/19 07/09/22 Rx monohydrate/macrocrystals 100 mg capsule (Macrobid) sodium,potassium,mag sulfates 17.5 See Rx Instructions PO .COMPLEX 04/20/23 Rx gram-3.13 gram-1.6 gram oral soln #354 mL (Suprep Bowel Prep Kit) Lopressor 100 mg PO DAILY 05/14/23 05/14/23 History Allergies Allergy/AdvReac Type Severity Reaction Status Date / Time No Known Drug Allergies Allergy Verified 05/14/23 13:32 Exam Vital Signs (past 8 hours): - 05/14/23 13:37 Temperature 97.2 F L Pulse Rate 83 Respiratory Rate 16 Blood Pressure 133/88 Pulse Oximetry 98 Oxygen Delivery Method Room Air Oxygen Delivery Method Room Air Const General: healthy appearing Assessment & Plan Assessment and plan (1) Family history of colon cancer: Status: Acute Plan We reviewed the risks and benefits colonoscopy for colon cancer screening and family history of colon cancer and she would like to proceed.
[2023-05-14 15:24] VITALS: BP 138/81; PULSE 65; RESP 158; TEMP 35.7; O2SAT 99
--- NOTE | 2023-05-14 15:24 | PM.OP.COLON ---
Operative Date/Time/Diagnoses Date of procedure: 05/14/23 Time of procedure: 15:24 Pre-op diagnosis: Family history of colon cancer and personal history of colon polyps Post-op diagnosis: same Procedure & Clinicians Study performed: Colonoscopy Same procedure as scheduled: Yes Surgeon: Dick Gonzalez Procedure Notes Procedure in detail: Surgeon: Dick Gonzalez MD Anesthesia: Ananda Wright CRNA Procedure: The patient was brought to the endoscopy suite, placed in left lateral decubitus position. The patient was connected to monitoring devices. A time-out was performed. Sedation was administered. Once the patient was adequately sedated, a digital rectal exam was performed and was normal. The scope was then inserted and advanced to the cecum where the appendiceal orifice was identified and photographed. The scope was then slowly withdrawn over greater than 6 minutes. The mucosa was thoroughly inspected. 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 There were 2 polyps in the cecum, 1 was about 5 mm and 1 was about 8 mm and both were removed with a cold snare and sent together. The scope was retroflexed in the rectum. There were some internal hemorrhoids noted. The scope was straightened and removed. The patient was awakened and brought to recovery. Scope withdrawal time: 14 minutes Sedation time: 30 minutes EBL: 5 mL Findings: 2 polyps in the cecum, both less than 1 cm Post-procedure Disposition: PACU
[2023-05-14 15:29] VITALS: BP 152/79; PULSE 61; RESP 14; O2SAT 100
[2023-05-14 15:35] VITALS: BP 167/90; PULSE 57; RESP 16; O2SAT 100
[2023-05-14 15:37] VITALS: BP 167/90; PULSE 56; RESP 14; O2SAT 98
== END 2023-05-14 16:08 | disposition home or self-care (01) ==
PROVIDERS: Surgery; PCP Student in an Organized Health Care Education/Training Program; Referring Provider Surgery; Visit Provider Surgery
PROC: 0DJD8ZZ Inspection of Lower Intestinal Tract, Via Natural or Artificial Opening Endoscopic (ICD-10-PCS; CPT 45378; principal; 2023-05-14 14:15)
DX: Z12.11 Encounter for screening for malignant neoplasm of colon (principal); Z80.0 Family history of malignant neoplasm of digestive organs; Z86.010 Personal history of colon polyps; K63.89 Other specified diseases of intestine; K64.8 Other hemorrhoids; D12.0 Benign neoplasm of cecum
CPT/HCPCS: 45385; J2704

== ENCOUNTER → 2024-02-01 15:17 | Outpatient (CLI) | payer MEDICARE, SELFPAY ==
--- NOTE | 2024-02-01 15:23 | DI.RAD.S_ITS ---
PROCEDURE: XR CERVICAL SPINE 2V OR 3V INDICATIONS: NECK PAIN TECHNIQUE: 3 view(s) of the cervical spine were acquired. COMPARISON: None. FINDINGS: Bones: No fractures or dislocations to the T1 level. The lateral masses of C1 appear intact on the odontoid view. No suspicious bony lesions. Mild disc space narrowing in the lower cervical spine Soft tissues: No prevertebral soft tissue swelling. IMPRESSION: Mild degenerative disc disease lower cervical spine Approved by: Eleuterio Denis M.D. on 02/01/2024 at 19:22
--- NOTE | 2024-02-01 15:23 | DI.RAD.S_ITS ---
PROCEDURE: XR THORACIC SPINE 3V INDICATIONS: NECK PAIN TECHNIQUE: 3 views of the thoracic spine were acquired. COMPARISON: None. FINDINGS: Bones: No fractures or dislocations. No suspicious bony lesions. 12 pairs of ribs are noted, and appear intact where visualized. Disc space narrowing anterior osteophytes in the midthoracic spine Soft tissues: No paravertebral stripe thickening. IMPRESSION: Midthoracic degenerative disc disease. No fracture or malalignment Approved by: Eleuterio Denis M.D. on 02/01/2024 at 19:23
== END ==
PROVIDERS: PCP Student in an Organized Health Care Education/Training Program; Referring Provider Physician Assistant; Visit Provider Physician Assistant
DX: M50.30 Other cervical disc degeneration, unspecified cervical region (principal); M51.34 Other intervertebral disc degeneration, thoracic region
CPT/HCPCS: 72040; 72072

== ENCOUNTER → 2024-05-07 13:13 | Outpatient (CLI) | payer MEDICARE, SELFPAY ==
--- NOTE | 2024-05-07 13:14 | DI.MG.S_ITS ---
BILATERAL DIGITAL SCREENING MAMMOGRAM 3D/2D WITH CAD: 05/07/2024 CLINICAL: Routine screening. Comparison is made to exams dated: 05/05/2022 mammogram, 05/05/2023 mammogram, 04/26/2021 mammogram, 04/25/2020 mammogram, and 12/02/2018 mammogram - [facility]. There are scattered areas of fibroglandular density in both breasts (category b / 25%-50% glandular tissue). Current study was also evaluated with a Computer Aided Detection (CAD) system. There are benign diffuse calcifications in both breasts. No significant masses, calcifications, or other findings are seen in either breast. There has been no significant interval change. IMPRESSION: BENIGN There is no mammographic evidence of malignancy. A 1 year screening mammogram is recommended. Based on the Tyrer Cuzick model (a risk assessment model) the patient's lifetime risk is 3.3% and her 10 year risk is 2.4%. According to the ACR, ACS, and NCCN guidelines, an annual breast MRI exam along with mammogram is recommended if the patient's lifetime risk is 20% or greater. This exam was interpreted at Station ID: [id number]. NOTE: For mammograms, a report in lay terms will be sent to the patient. Approximately 15% of breast malignancies will not be visualized mammographically. In the management of a palpable breast mass, a negative mammogram must not discourage biopsy of a clinically suspicious lesion. Electronically Signed By: Hunter rivas/[email or web address]:05/09/2024 09:51:44 letter sent: Normal Exam ACR BI-RADS Category 2: Benign Finding(s) [id number]
== END ==
PROVIDERS: PCP Student in an Organized Health Care Education/Training Program; Referring Provider Student in an Organized Health Care Education/Training Program; Visit Provider Student in an Organized Health Care Education/Training Program
DX: Z12.31 Encounter for screening mammogram for malignant neoplasm of breast (principal); R92.323 Mammographic fibroglandular density, bilateral breasts
CPT/HCPCS: 77063; 77067

== ENCOUNTER 2024-12-06 14:47 | Emergency (ER) | payer MEDICARE, SELFPAY ==
[2024-12-06 15:13] VITALS: BP 171/79; PULSE 85; RESP 18; TEMP 36.2; O2SAT 98; BMI 25.0
--- NOTE | 2024-12-06 15:40 | DI.RAD.S_ITS ---
PROCEDURE: XR CHEST 2V INDICATIONS: chest pain TECHNIQUE: 2 views of the chest were acquired. COMPARISON: [facility], , XR CHEST 2V, 07/09/2022, 15:57. FINDINGS AND IMPRESSION: No airspace consolidation or pleural effusion. Normal heart size. Degenerative osseous changes. Dictated by: Kevin Cavanaugh M.D. on 12/06/2024 at 15:54 Approved by: Kevin Cavanaugh M.D. on 12/06/2024 at 15:54
[2024-12-06 16:02] LABS: Influenza A - CEPHEID Flu A NEGATIVE (NEGATIVE); Influenza B - CEPHEID Flu B NEGATIVE (NEGATIVE); Respiratory Syncytial Virus Negative (Negative)
[2024-12-06 16:03] LABS: COVID-19 CEPHEID 4-PLEX PCR Negative (Negative)
--- NOTE | 2024-12-06 17:27 | ED_ITS ---
HPI - Nausea/Vomiting/Diarrhea <Juan Park PA-C - Last Filed: 12/06/24 19:01> General Chief complaint: Nausea/Vomiting/Diarrhea Stated complaint: chronic diarrhea 10 days vomitting WALKER Time Seen by Provider: 12/06/24 15:39 Source: patient Mode of arrival: Ambulatory History of Present Illness HPI Narrative: 74-year-old female presents to the ED with 10 days of nausea, vomiting, diarrhea. patient states that she is also experiencing some right-sided thoracic back pain on inspiration. patient is currently not experiencing any fevers, chills, nausea, abdominal pain, lightheadedness, dizziness, syncope. Patient reports about 3-4 episodes of diarrhea a day. Patient is tolerating p.o. well. Related Data Home Medications Medication Instructions Recorded Confirmed citalopram [Celexa] 25 mg PO QDRHS anx 04/22/19 09/19/23 Lopressor 100 mg PO DAILY 05/14/23 09/19/23 Previous Rx's Medication Instructions Recorded nitrofurantoin 100 mg PO BID #14 caps 04/22/19 monohydrate/macrocrystals 100 mg capsule (Macrobid) methocarbamol 500 mg tablet 500 mg PO TID PRN muscle pain #21 09/19/23 tabs Allergies Allergy/AdvReac Type Severity Reaction Status Date / Time No Known Drug Allergies Allergy Verified 09/19/23 17:02 Review of Systems <Juan Park PA-C - Last Filed: 12/06/24 19:01> Constitutional Constitutional: Denies chills, Denies fatigue, Denies fever(s), Denies frequent falls, Denies lethargy and Denies weakness Eyes Eyes: Denies change in vision, Denies eye discharge, Denies irritation and D enies loss of vision ENT Ears, Nose, Mouth, and Throat: Denies change in voice, Denies dizziness, Denies neck pain, Denies sore throat and Denies throat swelling Cardiovascular Cardiovascular: Denies chest pain, Denies irregular heart rhythm, Denies lightheadedness, Denies palpitations, Denies dyspnea, Denies dyspnea on exertion and Denies orthopnea Respiratory Respiratory: Denies cough, Reports pain on inspiration, Denies dyspnea, Denies dyspnea on exertion and Denies wheezing Gastrointestinal Gastrointestinal: Denies abdominal pain, Denies change in bowel habits, Reports diarrhea, Reports nausea and Reports vomiting Musculoskeletal Musculoskeletal: Denies neck pain and Denies numbness Integumentary/Breasts Skin/Breast: Denies pruritus, Denies erythema, Denies rash and Denies wounds Neurologic Neurologic: Denies behavioral changes, Denies confusion, Denies dizziness, Denies frequent falls, Denies loss of vision, Denies numbness and Denies weakness Psychiatric Psychiatric: Denies anxiety, Denies behavioral changes, Denies confusion, Denies depression, Denies homicidal ideation and Denies suicidal ideation Endocrine Endocrine: Denies fatigue, Denies flushing and Denies palpitations Hematologic/Lymphatic Hematologic/Lymphatic: Denies easy bruising Allergic/Immunologic Allergic/Immunologic: Denies urticaria, Denies throat swelling and Denies wheezing Patient History <Juan Park PA-C - Last Filed: 12/06/24 19:01> Medical History No significant medical problems Social History household members: spouse Smoking Status: Former smoker Smoking Status: Former smoker alcohol intake frequency: 0-2 drinks per day Alcohol type: wine Exam <Juan Park PA-C - Last Filed: 12/06/24 19:01> Narrative Exam Narrative: Const General:?cooperative, healthy appearing and comfortable [facility] Head:?normal to inspection Ears:?hearing grossly normal bilaterally Nose:?external nose normal Face and sinus:?normal facial exam and sinuses nontender Mouth:?oral mucosae normal Throat:?posterior oropharynx normal Eyes General:?appearance normal, both eyes and all related structures Neck Neck:?normal visual inspection and no lymphadenopathy noted Resp Effort & Inspection:?normal respiratory effort Auscultation:?clear to auscultation bilaterally Cardio Rate:?regular rate Rhythm:?regular rhythm GI Abdomen is soft, nondistended, nontender to palpation. Neuro General:?patient alert, patient awake and patient oriented x3 Initial Vital Signs Initial Vital Signs: Vital Signs Temperature 97.2 F L 12/06/24 15:13 Pulse Rate 85 12/06/24 15:13 Respiratory Rate 18 12/06/24 15:13 Blood Pressure 171/79 H 12/06/24 15:13 Pulse Oximetry 98 12/06/24 15:13 Oxygen Delivery Method Room Air 12/06/24 15:13 <Jackie Marisa Frausto DO - Last Filed: 12/11/24 07:54> Initial Vital Signs Initial Vital Signs: Vital Signs Temperature 97.2 F L 12/06/24 15:13 Pulse Rate 85 12/06/24 15:13 Respiratory Rate 18 12/06/24 15:13 Blood Pressure 171/79 H 12/06/24 15:13 Pulse Oximetry 98 12/06/24 15:13 Oxygen Delivery Method Room Air 12/06/24 15:13 Course <Juan Park PA-C - Last Filed: 12/06/24 19:01> Orders Ordered: ED Orders 12/06/24 15:15 Covid-19 + FLU A/B + RSV - PCR Stat 12/06/24 15:40 CXR [XR chest 2V] Stat Vital Signs Vital signs: Vital Signs - 8 hr 12/06/24 15:13 12/06/24 17:45 Temperature 97.2 F L Pulse Rate 85 71 Respiratory Rate 18 17 Blood Pressure 171/79 H 156/73 H Pulse Oximetry 98 97 Oxygen Delivery Method Room Air Room Air <Jackie Frausto DO - Last Filed: 12/11/24 07:54> Orders Ordered: ED Orders 12/06/24 15:15 Covid-19 + FLU A/B + RSV - PCR Stat 12/06/24 15:40 CXR [XR chest 2V] Stat Vital Signs Vital signs: Vital Signs - 8 hr 12/06/24 15:13 12/06/24 17:45 Temperature 97.2 F L Pulse Rate 85 71 Respiratory Rate 18 17 Blood Pressure 171/79 H 156/73 H Pulse Oximetry 98 97 Oxygen Delivery Method Room Air Room Air MDM - Nausea/Vomiting/Diarrhea <Juan Park PA-C - Last Filed: 12/06/24 19:01> Lab Data Labs: Lab Results 12/06/24 Range/Units 15:15 SARS-CoV-2 (PCR) Negative (Negative) Influenza A (RT-PCR) Flu a negative (NEGATIVE) Influenza B (RT-PCR) Flu b negative (NEGATIVE) RSV (PCR) Negative (Negative) MDM Narrative Medical decision making narrative: 74-year-old female presents to the ED with 10 days of nausea, vomiting, diarrhea. Respiratory panel was obtained which was negative for COVID-19, influenza, RSV. Chest x-ray was obtained with no acute findings. It is also reassuring that patient's upper back pain was easily reproducible with twisting movements and arm movements. Patient was offered a D-dimer test to rule out PE, however patient declined. Recommend supportive treatment with plenty of hydration, Imodium, BRAT diet, tylenol. recommend follow-up with PCP as soon as possible. ED return precautions discussed with patient. Patient verbalized understanding. Medical records reviewed: Yes <Jackie Frausto DO - Last Filed: 12/11/24 07:54> Lab Data Labs: Lab Results 12/06/24 Range/Units 15:15 SARS-CoV-2 (PCR) Negative (Negative) Influenza A (RT-PCR) Flu a negative (NEGATIVE) Influenza B (RT-PCR) Flu b negative (NEGATIVE) RSV (PCR) Negative (Negative) Discharge Plan Departure Patient Disposition: Home Clinical Impression: Nausea, vomiting, and diarrhea Instructions: DI for Vomiting -- Adult Activity Restrictions/Additional Instructions: You were evaluated in the ED today for nausea, vomiting and diarrhea. It appears that you have had a recent viral infection that is causing these symptoms. You may take Imodium that is available in the drug stores to control the diarrhea. You may also follow the BRAT diet which includes bananas, rice, apples, toast to help with the diarrhea. The pain in your upper back is likely musculoskeletal, for which you may take Tylenol, ibuprofen. Return to the ED if you have worsening symptoms such as chest pain, shortness of breath, persistent vomiting. Prescriptions: No Action citalopram 25 mg PO QDRHS nitrofurantoin monohyd/m-cryst [Macrobid] 100 mg capsule 100 mg PO BID Qty: 14 0RF Rx Instructions: must administer with a meal/food methocarbamol 500 mg tablet 500 mg PO TID PRN (Reason: muscle pain) Qty: 21 0RF Lopressor 100 mg PO DAILY Referrals: Kelsie Francois PA-C [Primary Care Provider] - Stand Alone Forms: Patient Portal/API/Survey ED Sign-out <Jackie Frausto DO - Last Filed: 12/11/24 07:54> Cosign ED Attending Coschavezature Attestation: I was immediately available in the department for consultation.
[2024-12-06 17:45] VITALS: BP 156/73; PULSE 71; RESP 17; O2SAT 97
== END 2024-12-06 17:45 | disposition home or self-care (01) ==
PROVIDERS: Emergency Medicine; Emergency Provider Student in an Organized Health Care Education/Training Program; PCP Student in an Organized Health Care Education/Training Program
DX: R19.7 Diarrhea, unspecified (principal); R11.2 Nausea with vomiting, unspecified; M54.6 Pain in thoracic spine
CPT/HCPCS: 0241U; 71046; 99283

== ENCOUNTER → 2025-05-10 15:17 | Outpatient (CLI) | payer MEDICARE, SELFPAY ==
--- NOTE | 2025-05-10 15:19 | DI.MG.S_ITS ---
MM screening mammo BI: 05/10/2025. BI-RADS: 2 CLINICAL: 74-year old female for bilateral screening mammogram. Tyrer-Cuzick lifetime risk of 2.6%. No personal or first-degree family history of breast cancer. The patient is status-post reduction mammoplasty. PRIOR EXAMS 05/07/2024, 05/05/2023, 05/05/2022, 04/26/2021, MAMMOGRAPHY TECHNIQUE: 2D and 3D (tomosynthesis) digital mammographic views obtained, with additional images as needed for full coverage. Current study was also evaluated with a Computer Aided Detection (CAD) system. DENSITY B. There are scattered areas of fibroglandular density. MAMMOGRAPHY FINDINGS Bilateral: Benign-appearing calcifications noted. There are no suspicious masses, calcifications, or other findings in the breast. IMPRESSION: * No evidence of malignancy with benign findings. RECOMMENDATIONS Bilateral * Annual screening mammography. OVERALL ASSESSMENT CATEGORY BI-RADS-2: Benign. The [employer] recommends annual screening mammography beginning at age 40 for women with average risk of breast cancer. ELECTRONICALLY SIGNED: Hien Samaniego M.D. on 05/19/2025 at 08:32:34 PM PT Interpreting Station ID: [id number]
== END ==
LOC: MAMMO 15:19
PROVIDERS: PCP Student in an Organized Health Care Education/Training Program; Referring Provider Student in an Organized Health Care Education/Training Program; Visit Provider Student in an Organized Health Care Education/Training Program
DX: Z12.31 Encounter for screening mammogram for malignant neoplasm of breast (principal)
CPT/HCPCS: 77063; 77067